=== PATIENT | female | born 1995 | race Caucasian/White ===

== ENCOUNTER 2020-09-10 17:14 | Emergency (ER) | payer OTHER ==
[2020-09-10] MEDS ORDERED: Lidocaine 1% 10 ML MDV INJECT ONE (18:09)
--- NOTE | 2020-09-10 18:50 | EDM.PDOC ---
ED HPI GENERAL MEDICAL PROBLEM - General Chief Complaint: Laceration Stated Complaint: FACIAL INJURIES Time Seen by Provider: 09/10/20 17:48 Source of Information: Reports: Patient, RN Notes Reviewed History Limitations: Reports: No Limitations - History of Present Illness INITIAL COMMENTS - FREE TEXT/NARRATIVE: Patient is a 25-year-old female presenting to the emergency department with complaints of a laceration to her chin as well as scattered abrasions, hematoma to her forehead, and breaking off the crown on her front tooth. She states that she was riding a skateboard down a hill when she jumped off of it. She was unable to keep up with momentum and she fell forward hitting her chin first and then her forehead. She denies any loss of consciousness. She has had no headache, dizziness, vision changes, nausea, or vomiting. She also has a small abrasion over the bridge of her nose but denies any pain to her nose. She briefly had a right sided epistaxis, but bleed has stopped. She states that her last tetanus shot was its within the last few years. Face/Facial Pain Score (Numeric/FACES): 4 - Related Data Allergies Allergy/AdvReac Type Severity Reaction Status Date / Time No Known Allergies Allergy Verified 09/10/20 17:35 Home Meds: Home Meds . [No Known Home Meds] 09/10/20 [History] Past Medical History - Past Health History Medical/Surgical History: Denies Medical/Surgical History - Infectious Disease History Infectious Disease History: Reports: Chicken Pox Social & Family History - Family History Family Medical History: No Pertinent Family History - Tobacco Use Tobacco Use Status *Q: Never Tobacco User Second Hand Smoke Exposure: No - Caffeine Use Caffeine Use: Reports: Coffee Caffeine Use Comment: occasionally - Recreational Drug Use Recreational Drug Use: No ED ROS GENERAL - Review of Systems Review Of Systems: See Below Constitutional: Reports: No Symptoms HEENT: Reports: Other (crown broke off tooth #8) Respiratory: Reports: No Symptoms Cardiovascular: Reports: No Symptoms Endocrine: Reports: No Symptoms GI/Abdominal: Reports: No Symptoms : Reports: No Symptoms Musculoskeletal: Reports: No Symptoms Skin: Reports: Other (Abrasion to middle forehead, bridge of nose, and chin. laceration to chin as well.) ED EXAM, SKIN/RASH Exam: See Below Exam Limited By: No Limitations General Appearance: Alert, WD/WN, No Apparent Distress Eye Exam: Bilateral Eye: Normal Inspection, PERRL Nose: Normal Inspection, Normal Mucosa, Other (Small abrasion over the bridge of the nose. No tenderness to palpation or obvious deformity. Small on a dried blood to the right nare. No septal hematoma.). No: Nasal Tenderness, Nasal Deformity, Nasal Swelling Throat/Mouth: Other (Missing crown to tooth #8. Patient feels that the "stubborn "of the tooth may also have broken off as it was flat and now it is curved. She denies any pain.) Head: Facial Swelling (Abrasion with hematoma to the middle forehead), Other (Abrasion and 1.5 cm laceration to the chin) Neck: Normal Inspection, Supple, Non-Tender, Full Range of Motion Respiratory/Chest: No Respiratory Distress, Lungs Clear, Normal Breath Sounds, No Accessory Muscle Use, Chest Non-Tender Cardiovascular: Normal Peripheral Pulses, Regular Rate, Rhythm, No Edema, No Gallop, No JVD, No Murmur, No Rub Back Exam: Normal Inspection, Full Range of Motion, NT Extremities: Other (Abrasion to right palm) Neurological: Alert, Oriented, CN II-XII Intact, Normal Cognition, Normal Gait, Normal Reflexes, No Motor/Sensory Deficits Psychiatric: Normal Affect, Normal Mood ED SKIN PROCEDURES - Laceration/Wound Repair Chin Appearance: Superficial, Subcutaneous, Muscle, Linear, Stellate, Irregular, Clean, Mildly Contaminated, Moderately Contaminated, Heavily Contaminated, Other Anesthetic Type: Local Local Anesthesia - Lidocaine (Xylocaine): 1% Plain Local Anesthetic Volume: 2cc Skin Prep: Chlorhexidine (Hibiciens), Saline, Sterile Drape Exploration/Debridement/Repair: Wound Explored, No Foreign Material Found Closed with: Sutures Lac/Wound length In cm: 1.5 Suture Size: 5-0 # of Sutures: 3 Suture Type: Nylon Sterile Dressing Applied: Nurse Tetanus Status Addressed: Yes Complications: No Course - Vital Signs Last Recorded V/S: Last Vital Signs Temp 99 F 09/10/20 17:30 Pulse 102 H 09/10/20 19:20 Resp 17 09/10/20 19:20 BP 122/77 09/10/20 19:20 Pulse Ox 99 09/10/20 19:20 - Orders/Labs/Meds Meds: Medications Discontinued Medications Generic Name Dose Route Start Last Admin Trade Name Freq PRN Reason Stop Dose Admin Lidocaine HCl 10 ml 09/10/20 18:09 09/10/20 18:14 Xylocaine 1% INJECT 09/10/20 18:10 10 ml ONETIME ONE Administration - Re-Assessments/Exams Free Text/Narrative Re-Assessment/Exam: Patient is a 25-year-old female presenting to the emergency department with complaints of scattered abrasions, hematoma to her head, laceration to her chin, and her crown being broken off a tooth #8. Neurologic exam is normal and she has no headache, nausea, vomiting, dizziness, and did not lose consciousness. She does have a abrasion over her nasal bridge but has no pain or tenderness to palpation. Nostrils are patent and there is no septal hematoma. I do not feel facial imaging is indicated at this point. Discussed that she will need to see a dentist with regards to her crown being broken off of tooth #8. She recently moved to the area so does not have a dentist, but she will call around to see who can fix it. She does need sutures in the 1.5 cm laceration on her chin. Have ordered lidocaine. She states she is up-to-date on her tetanus vaccination. Departure - Departure Time of Disposition: 19:04 Disposition: Home, Self-Care 01 Condition: Good Clinical Impression: Laceration, Abrasion, Hematoma, Loss of retention of dental crown - Discharge Information *PRESCRIPTION DRUG MONITORING PROGRAM REVIEWED*: No *COPY OF PRESCRIPTION DRUG MONITORING REPORT IN PATIENT KATHERIN: No Instructions: Laceration Care, Adult, Abrasion, [id number] Referrals: PCP,None [Primary Care Provider] - Forms: ED Department Discharge Additional Instructions: You were seen in the emergency department today for a laceration to your chin, scattered abrasions, hematoma to your forehead, and loss of your dental crown of your front tooth. The wounds were cleansed and laceration was closed with 3 sutures. These should stay intact for 5 days. After that time they may be removed in the clinic by a nurse. #2 schedule a visit with a nurse to have the sutures removed at [phone]. keep the wound clean and dry. Wash with normal soap and water twice daily. Do not submerge the wound in water. Watch for signs of infection including increased redness, swelling, or purulent drainage. If these should occur, you should be seen either in the clinic or in the emergency department as antibiotic treatment may be needed. Recommend that you call first thing Sunday morning to set up an appointment with a dentist to address the missing crown. If you should develop dizziness, confusion, severe headache, more than 2 episodes of vomiting, you should return to the emergency department for reevaluation. Sepsis Event Note (ED) - Evaluation Sepsis Screening Result: No Definite Risk
== END 2020-09-10 19:20 | disposition home or self-care (01) ==
LOC: JD.ED 17:14
DX: S01.81XA Laceration without foreign body of other part of head, initial encounter (principal); S60.511A Abrasion of right hand, initial encounter; K08.531 Fractured dental restorative material with loss of material; V00.131A Fall from skateboard, initial encounter
CPT/HCPCS: 12011; 99282-25; 99283